=== PATIENT | female | born 1950 | race Caucasian/White ===

== ENCOUNTER 2018-10-23 14:11 | Emergency (ER) | payer OTHER ==
[~2018-10-23] VITALS: Ht 152.4 cm; Wt 104.5 kg
[~2018-10-23 14:11] MED LIST: NAPR-985 PO
[2018-10-23 14:16] VITALS: BP 139/67; PULSE 92; RESP 17; Ht 152.4 cm; Wt 104.5 kg
[2018-10-23] MEDS ORDERED: KETOROLAC 60 MG INJ IM STA (14:44)
--- NOTE | 2018-10-23 14:51 | ERD ---
ER Documentation Chief Complaint Chief Complaint RIGHT LEG PAIN RADIATING TO HIPS/BACK, ONSET 2 WEEKS HPI 68-year-old female presenting with pain to her right buttock extending down her right leg. She denies any swelling. Denies any recent falls or injuries. She has a long history of uterine cancer which she recently had a hysterectomy for. Denies any fevers. Has limitations in medications she can take because she starting chemo next week. Medical history is diabetes and asthma. NKDA. Surgical history hysterectomy. Social history denies ROS All systems reviewed and are negative except as per history of present illness. Medications Home Meds Active Scripts Naproxen* (Naprosyn*) 500 Mg Tablet, 500 MG PO BID PRN for PAIN AND/OR INFLAMMATION, #30 TAB Prov:MARTHA CURRIE PA-C 10/23/18 FmHx Family History: No diabetes, No coronary disease, No other Physical Exam Vitals Vital Signs Date Temp Pulse Resp B/P (MAP) Pulse Ox O2 O2 Flow FiO2 Time Delivery Rate 10/23/18 98.2 92 17 139/67 96 14:16 (91) Physical Exam GENERAL: The patient is well-appearing, well-nourished, in no acute distress HEENT: Atraumatic. Conjunctivae are pink. Pupils equal, round, and reactive to light. There is no scleral icterus. Tympanic membranes clear bilaterally. Oropharynx clear. CHEST: Clear to auscultation bilaterally. There are no rales, wheezes or rhonchi. HEART: Regular rate and rhythm. No murmurs, clicks, rubs or gallops. BACK: Tender to palpation down right buttock. EXTREMITIES: Equal pulses bilaterally. There is no peripheral clubbing, cyanosi s or edema. No focal swelling or erythema. Full range of motion. Grossly neurovascularly intact. NEUROLOGIC: Alert and oriented. Cranial nerves II through XII intact. Motor strength in all 4 extremities with 5 out of 5 strength. Sensation grossly int act. Normal speech and gait. SKIN: There is no apparent rash or petechiae. The skin is warm and dry. Results 24 hrs Current Medications Medications Dose Sig/Sierra Start Time Status Last (Trade) Ordered Route PRN Stop Time Admin Dose Reason Admin Ketorolac 60 mg ONCE STAT 10/23/18 DC Tromethamine IM 14:44 (Toradol) 8/16/19 14:46 Procedures/MDM ER course: Toradol given in ED. MDM: 68-year-old female presenting with pain along the sciatic nerve. I have low suspicion for acute fracture dislocation. I have low suspicion for infectious process. I have low suspicion for neuro deficit. Patient is diabetic and is all complaining of paresthesias to her hands and patient likely has nerve flare. I will not give steroids given patient is going to be having chemotherapy in the next few days and I do not want to cause complication of the medication. Departure Diagnosis: Primary Impression: Paresthesia Additional Impression: Sciatica Condition: Stable Patient Instructions: Paraesthesias Referrals: [facility] YOU HAVE RECEIVED A MEDICAL SCREENING EXAM AND THE RESULTS INDICATE THAT YOU DO NOT HAVE A CONDITION THAT REQUIRES URGENT TREATMENT IN THE EMERGENCY DEPARTMENT. FURTHER EVALUATION AND TREATMENT OF YOUR CONDITION CAN WAIT UNTIL YOU ARE SEEN IN YOUR DOCTORS OFFICE WITHIN THE NEXT 1-2 DAYS. IT IS YOUR RESPONSIBILITY TO MAKE AN APPOINTMENT FOR FOLOW-UP CARE. IF YOU HAVE A PRIMARY DOCTOR --you should call your primary doctor and schedule an appointment IF YOU DO NOT HAVE A PRIMARY DOCTOR YOU CAN CALL OUR PHYSICIAN REFERRAL HOTLINE AT IF YOU CAN NOT AFFORD TO SEE A PHYSICIAN YOU CAN CHOSE FROM THE FOLLOWING [facility] [address] [facility]. [facility] [address] [facility]. [facility] [address] [facility] [facility] [address] [facility]. [facility] [address] [facility]. [facility]. [address] Additional Instructions: FOLLOW UP WITH YOUR PRIMARY CARE PHYSICIAN TOMORROW.Return to this facility if you are not improving as expected. MARTHA CURRIE PA-C Oct 23, 2018 14:51
== END 2018-10-23 15:22 | disposition home or self-care (01) ==
LOC: FTE 14:11
DX: M54.31 Sciatica, right side (principal); R20.2 Paresthesia of skin; E11.9 Type 2 diabetes mellitus without complications; J45.909 Unspecified asthma, uncomplicated; Z85.41 Personal history of malignant neoplasm of cervix uteri
CPT/HCPCS: 96372; J1885